=== PATIENT | male | born 1955 | race African-American/Black ===

== ENCOUNTER 2021-12-26 17:16 | Inpatient (IN) | payer MEDICAID, MEDICARE ==
[~2021-12-26] VITALS: Ht 182.9 cm; Wt 78.0 kg
[2021-12-26] MEDS ORDERED: ACETAMINOPHEN 325MG TABLET PO ONE (18:30)
[2021-12-26] MEDS ORDERED: KETOROLAC 60MG/2ML VIAL IM ONE (18:30)
[2021-12-26] MEDS: LIDOCAINE 5% PATCH TOP SCH (18:51)
[2021-12-26 20:01] LABS: BASOPHILS % 0.5 % (0.0-2.0); CHLORIDE 97 mEq/L (98-107); EOSINOPHILS % 0.3 % (0.0-5.0); HEMOGLOBIN. 16.7 g/dL (14.0-18.0); LYMPHOCYTES % 11.5 % (20.0-50.0); MEAN CORPUSCULAR HEMOGLOBIN 26.1 pg (28.0-32.0); MEAN CORPUSCULAR VOLUME 79.5 fL (80.0-94.0); MEAN PLATELET VOLUME 9.6 fl (7.4-10.4); MONOCYTES % 9.1 % (2.0-8.0); NEUTROPHILS % 78.6 % (40.0-76.0); PLATELET 159 x1000/uL (130-400); RED BLOOD CELL COUNT 6.41 mill/uL (4.7-6.1); RED CELL DISTRIBUTION WIDTH 16.2 % (11.6-14.6)
[2021-12-26 20:04] LABS: INR 1.2; PROTHROMBIN TIME 12.3 sec (9.6-11.0)
[2021-12-26] MEDS ORDERED: POTASSIUM CHLORIDE 20MEQ TABLET SR PO ONE (20:15)
[2021-12-26] MEDS ORDERED: ASPIRIN 325MG EC TABLET PO ONE (22:00)
[2021-12-27] MEDS ORDERED: ASPIRIN 325MG EC TABLET PO NR (00:15)
[2021-12-27] MEDS ORDERED: POTASSIUM CHLORIDE 20MEQ TABLET SR PO NR (00:15)
[2021-12-27] MEDS ORDERED: HYDROCODONE/ACETAMINOPHEN 5/325MG TABLET PO PRN (03:00)
[2021-12-27] MEDS ORDERED: DEXTROSE 50% WATER 50ML SYRINGE IV PRN (03:00)
[2021-12-27] MEDS ORDERED: NALOXONE HCL 0.4MG/ML VIAL IV PRN (03:15)
[2021-12-27 03:44] VITALS: BP 140/82
[2021-12-27 04:08] LABS: CLARITY URINE CLEAR (CLEAR); COLOR URINE DARK YELLOW (YELLOW); KETONES URINE 1+ (NEGATIVE); LEUKOCYTE ESTERASE URINE NEGATIVE (NEGATIVE); NITRITE URINE NEGATIVE (NEGATIVE); OCCULT BLOOD URINE 1+ (NEGATIVE); PROTEIN URINE 4+ (NEGATIVE); SPECIFIC GRAVITY URINE 1.032 (1.005-1.030)
[2021-12-27] MEDS: BLOOD SUGAR DIAGNOSTIC STRIP TEST SCH ×4 (06:23→21:35)
[2021-12-27 08:00] VITALS: BP 150/74
[2021-12-27] MEDS: INSULIN LISPRO 100 UNITS/ML SUBCUT SCH ×4 (08:37→22:09)
[2021-12-27] MEDS: ASPIRIN 81MG TABLET PO SCH (08:43)
[2021-12-27 08:55] LABS: CREATINE KINASE MB FRACTION 7.6 ng/mL (0.5-3.6)
[2021-12-27] MEDS: LIDOCAINE 5% PATCH TOP SCH (09:00)
[2021-12-27 09:45] LABS: BASOPHILS % 0.6 % (0.0-2.0); EOSINOPHILS % 1.8 % (0.0-5.0); HEMATOCRIT. 53.1 % (42.0-52.0); HEMOGLOBIN. 17.4 g/dL (14.0-18.0); LYMPHOCYTES % 21.2 % (20.0-50.0); MEAN CORPUSCULAR HEMOGLOBIN 25.9 pg (28.0-32.0); MEAN CORPUSCULAR VOLUME 79.3 fL (80.0-94.0); MEAN PLATELET VOLUME 10.5 fl (7.4-10.4); MONOCYTES % 12.4 % (2.0-8.0); PLATELET 166 x1000/uL (130-400); RED BLOOD CELL COUNT 6.69 mill/uL (4.7-6.1); RED CELL DISTRIBUTION WIDTH 15.9 % (11.6-14.6)
[2021-12-27 09:46] LABS: CHLORIDE 98 mEq/L (98-107)
[2021-12-27 09:55] LABS: HDL CHOLESTEROL 39 mg/dL (40-59); LDL CHOLESTEROL 128 mg/dL (5-100)
[2021-12-27 12:00] VITALS: BP 178/105
[2021-12-27] MEDS ORDERED: HYDRALAZINE 20MG/ML VIAL IV PRN (14:00)
[2021-12-27 16:00] VITALS: BP 152/89
[2021-12-27 17:22] LABS: CREATINE KINASE MB FRACTION 6.8 ng/mL (0.5-3.6)
[2021-12-27 20:00] VITALS: BP 234/136
[2021-12-27] MEDS: ATORVASTATIN CALCIUM 20MG TABLET PO SCH (21:35)
[2021-12-27] MEDS: CLONIDINE 0.2MG TABLET PO PRN (21:35)
[2021-12-27] MEDS: AMLODIPINE 5MG TABLET PO SCH (21:37)
[2021-12-27] MEDS: LORAZEPAM 2MG/ML CPJ IV PRN (23:46)
[2021-12-28] VITALS (8 sets, daily range): BP systolic 113–190; BP diastolic 59–100
[2021-12-28 01:41] LABS: CREATINE KINASE MB FRACTION 6.9 ng/mL (0.5-3.6)
[2021-12-28] MEDS: BLOOD SUGAR DIAGNOSTIC STRIP TEST SCH ×4 (06:21→21:18)
[2021-12-28] MEDS: ASPIRIN 81MG TABLET PO SCH (08:16)
[2021-12-28] MEDS: AMLODIPINE 5MG TABLET PO SCH ×2 (08:16→21:16)
[2021-12-28] MEDS: INSULIN LISPRO 100 UNITS/ML SUBCUT SCH ×4 (08:17→21:17)
[2021-12-28] MEDS ORDERED: HYDRALAZINE HCL 100MG TABLET PO NR (17:30)
[2021-12-28] MEDS: ATORVASTATIN CALCIUM 20MG TABLET PO SCH (21:15)
[2021-12-28] MEDS: HYDRALAZINE HCL 100MG TABLET PO SCH (21:16)
[2021-12-28] MEDS: LORAZEPAM 2MG/ML CPJ IV PRN (23:15)
[2021-12-29] VITALS: BP 112/61
[2021-12-29] MEDS: CLONIDINE 0.2MG TABLET PO PRN (03:57)
[2021-12-29 04:00] VITALS: BP 162/76
[2021-12-29] MEDS: HYDRALAZINE HCL 100MG TABLET PO SCH ×3 (05:30→21:01)
[2021-12-29] MEDS: BLOOD SUGAR DIAGNOSTIC STRIP TEST SCH ×4 (07:20→21:01)
[2021-12-29 08:00] VITALS: BP 112/85
[2021-12-29] MEDS: ASPIRIN 81MG TABLET PO SCH (08:33)
[2021-12-29] MEDS: AMLODIPINE 5MG TABLET PO SCH ×2 (08:33→21:01)
[2021-12-29] MEDS: INSULIN LISPRO 100 UNITS/ML SUBCUT SCH ×4 (08:34→21:02)
[2021-12-29 12:23] VITALS: BP 134/70
[2021-12-29 16:30] VITALS: BP 132/56
[2021-12-29] MEDS ORDERED: THIAMINE HCL 100 MG in SODIUM CHLORIDE 0.9% 49 ML IV NR (17:00)
[2021-12-29 17:44] LABS: BG BASE EXCESS 2.6 mmol/L (-2.0-2.0); BG CARBOXYHEMOGLOBIN 0.7 % (0.5-1.5); BG DEOXYHEMOGLOBIN 6.9 % (0.0-5.0); BG FRACTION INSPIRED OXYGEN 21; BG HCO3 ACT 24.9 mmol/L (22.0-26.0); BG METHEMOGLOBIN 0.4 % (0.0-1.5); BG PCO2 32.8 mmHg (35.0-45.0); BG PH 7.499 (7.350-7.450); BG PO2 62.1 mmHg (75.0-100.0); BG SAMPLE SITE RIGHT BRACHIAL; BG TOTAL HEMOGLOBIN 17.6 g/dL (12.0-18.0); BG VENT MODE ROOM AIR
[2021-12-29] MEDS: CEFEPIME 1,000 MG in DEXTROSE 5% WATER 50 ML IV SCH (18:05)
[2021-12-29 18:12] LABS: *AMPHETAMINES SCREEN URINE NEGATIVE (NEGATIVE); *BARBITURATES SCREEN URINE NEGATIVE (NEGATIVE); *BENZODIAZEPINES SCREEN URINE NEGATIVE (NEGATIVE); *COCAINE SCREEN URINE NEGATIVE (NEGATIVE); CANNABINOID URINE SCREEN NEGATIVE (NEGATIVE); METHADONE URINE SCREEN NEGATIVE (NEGATIVE); OPIATES URINE SCREEN NEGATIVE (NEGATIVE); PHENCYCLIDINE URINE SCREEN NEGATIVE (NEGATIVE)
[2021-12-29] MEDS: FUROSEMIDE 40MG/4ML VIAL IVP SCH (18:28)
[2021-12-29 20:00] VITALS: BP 117/52
[2021-12-29] MEDS ORDERED: CEFEPIME HCL 1000MG/VIAL INJ IV SCH (21:00)
[2021-12-29] MEDS: ATORVASTATIN CALCIUM 20MG TABLET PO SCH (21:00)
[2021-12-30] VITALS: BP 165/78
[2021-12-30] MEDS: CLONIDINE 0.2MG TABLET PO PRN ×2 (00:43→08:24)
[2021-12-30 04:00] VITALS: BP 120/58
[2021-12-30] MEDS: HYDRALAZINE HCL 100MG TABLET PO SCH ×3 (05:04→21:58)
[2021-12-30] MEDS: ASPIRIN 81MG TABLET PO SCH (08:11)
[2021-12-30] MEDS: FUROSEMIDE 40MG/4ML VIAL IVP SCH (08:11)
[2021-12-30] MEDS: INSULIN LISPRO 100 UNITS/ML SUBCUT SCH ×4 (08:15→22:00)
[2021-12-30] MEDS: AMLODIPINE 5MG TABLET PO SCH ×2 (08:24→21:59)
[2021-12-30 08:30] VITALS: BP 175/76
[2021-12-30 12:30] VITALS: BP 149/77
[2021-12-30] MEDS: BLOOD SUGAR DIAGNOSTIC STRIP TEST SCH ×3 (12:50→21:59)
[2021-12-30 16:00] VITALS: BP 129/60
[2021-12-30] MEDS: CEFEPIME 1,000 MG in DEXTROSE 5% WATER 50 ML IV SCH (16:32)
[2021-12-30 20:00] VITALS: BP 145/67
[2021-12-30] MEDS: ATORVASTATIN CALCIUM 20MG TABLET PO SCH (21:58)
[2021-12-30] MEDS: FINASTERIDE 5MG TABLET PO SCH (22:00)
[2021-12-30] MEDS: TAMSULOSIN HCL 0.4MG SR CAPSULE PO SCH (22:00)
[2021-12-31] VITALS: BP 120/57
[2021-12-31 04:00] VITALS: BP 135/59
[2021-12-31] MEDS: HYDRALAZINE HCL 100MG TABLET PO SCH ×3 (05:54→21:34)
[2021-12-31] MEDS: BLOOD SUGAR DIAGNOSTIC STRIP TEST SCH ×4 (07:02→21:34)
[2021-12-31 08:00] VITALS: BP 140/61
[2021-12-31 08:02] LABS: BASOPHILS % 0.4 % (0.0-2.0); EOSINOPHILS % 0.9 % (0.0-5.0); HEMATOCRIT. 48.9 % (42.0-52.0); HEMOGLOBIN. 15.8 g/dL (14.0-18.0); LYMPHOCYTES % 10.5 % (20.0-50.0); MEAN CORPUSCULAR HEMOGLOBIN 25.9 pg (28.0-32.0); MEAN CORPUSCULAR VOLUME 79.9 fL (80.0-94.0); MONOCYTES % 9.4 % (2.0-8.0); NEUTROPHILS % 78.8 % (40.0-76.0); RED BLOOD CELL COUNT 6.12 mill/uL (4.7-6.1); RED CELL DISTRIBUTION WIDTH 16.5 % (11.6-14.6)
[2021-12-31 08:10] LABS: CHLORIDE 97 mEq/L (98-107)
[2021-12-31] MEDS: INSULIN LISPRO 100 UNITS/ML SUBCUT SCH ×4 (08:24→21:36)
[2021-12-31] MEDS: FUROSEMIDE 40MG/4ML VIAL IVP SCH (08:28)
[2021-12-31] MEDS: FINASTERIDE 5MG TABLET PO SCH (08:29)
[2021-12-31] MEDS: ASPIRIN 81MG TABLET PO SCH (08:29)
[2021-12-31] MEDS: AMLODIPINE 5MG TABLET PO SCH ×2 (08:29→21:34)
[2021-12-31 12:00] VITALS: BP 154/57
[2021-12-31 12:01] LABS: PLATELET 192 x1000/uL (130-400)
[2021-12-31 16:00] VITALS: BP 144/64
[2021-12-31] MEDS: CEFEPIME 1,000 MG in DEXTROSE 5% WATER 50 ML IV SCH (17:00)
[2021-12-31 20:00] VITALS: BP 124/61
[2021-12-31] MEDS: ATORVASTATIN CALCIUM 20MG TABLET PO SCH (21:33)
[2021-12-31] MEDS: TAMSULOSIN HCL 0.4MG SR CAPSULE PO SCH (21:33)
[2022-01-01] VITALS: BP 166/79
[2022-01-01] MEDS: CLONIDINE 0.2MG TABLET PO PRN (01:37)
[2022-01-01 04:00] VITALS: BP 106/57
[2022-01-01] MEDS: HYDRALAZINE HCL 100MG TABLET PO SCH ×3 (06:00→21:32)
[2022-01-01] MEDS: BLOOD SUGAR DIAGNOSTIC STRIP TEST SCH ×4 (06:24→21:33)
[2022-01-01 08:00] VITALS: BP 145/74
[2022-01-01] MEDS: ASPIRIN 81MG TABLET PO SCH (09:26)
[2022-01-01] MEDS: FUROSEMIDE 40MG/4ML VIAL IVP SCH (09:26)
[2022-01-01] MEDS: FINASTERIDE 5MG TABLET PO SCH (09:27)
[2022-01-01] MEDS: AMLODIPINE 5MG TABLET PO SCH ×2 (09:27→21:32)
[2022-01-01] MEDS: INSULIN LISPRO 100 UNITS/ML SUBCUT SCH ×4 (09:28→21:35)
[2022-01-01 12:00] VITALS: BP 144/59
[2022-01-01 16:00] VITALS: BP_DIAS 79
[2022-01-01] MEDS: CEFEPIME 1,000 MG in DEXTROSE 5% WATER 50 ML IV SCH (19:22)
[2022-01-01 20:00] VITALS: BP 147/55
[2022-01-01] MEDS: TAMSULOSIN HCL 0.4MG SR CAPSULE PO SCH (21:32)
[2022-01-01] MEDS: ATORVASTATIN CALCIUM 20MG TABLET PO SCH (21:32)
[2022-01-02] VITALS: BP 138/67
[2022-01-02 04:00] VITALS: BP 159/69
[2022-01-02] MEDS: HYDRALAZINE HCL 100MG TABLET PO SCH ×3 (05:35→21:51)
[2022-01-02] MEDS: BLOOD SUGAR DIAGNOSTIC STRIP TEST SCH ×4 (07:23→21:51)
[2022-01-02 08:00] VITALS: BP 141/67
[2022-01-02] MEDS: FUROSEMIDE 40MG/4ML VIAL IVP SCH (09:49)
[2022-01-02] MEDS: ASPIRIN 81MG TABLET PO SCH (09:49)
[2022-01-02] MEDS: FINASTERIDE 5MG TABLET PO SCH (09:50)
[2022-01-02] MEDS: AMLODIPINE 5MG TABLET PO SCH ×2 (09:50→21:51)
[2022-01-02] MEDS: INSULIN LISPRO 100 UNITS/ML SUBCUT SCH ×4 (09:51→21:52)
[2022-01-02 12:00] VITALS: BP 144/57
[2022-01-02] MEDS ORDERED: INSULIN GLARGINE 100 UNITS/ML SUBCUT NR (14:00)
[2022-01-02] MEDS ORDERED: LORAZEPAM 0.5MG TABLET PO NR (15:15)
[2022-01-02 16:00] VITALS: BP 150/60
[2022-01-02] MEDS: CEFEPIME 1,000 MG in DEXTROSE 5% WATER 50 ML IV SCH (18:21)
[2022-01-02 20:00] VITALS: BP 114/64
[2022-01-02] MEDS: TAMSULOSIN HCL 0.4MG SR CAPSULE PO SCH (21:50)
[2022-01-02] MEDS: ZOLPIDEM TARTRATE 5MG TABLET PO PRN (21:51)
[2022-01-02] MEDS: ATORVASTATIN CALCIUM 20MG TABLET PO SCH (21:51)
[2022-01-02] MEDS: INSULIN GLARGINE 100 UNITS/ML SUBCUT SCH (21:53)
[2022-01-03] VITALS: BP 127/97
[2022-01-03 04:00] VITALS: BP 143/63
[2022-01-03] MEDS: BLOOD SUGAR DIAGNOSTIC STRIP TEST SCH ×4 (06:23→20:52)
[2022-01-03] MEDS: HYDRALAZINE HCL 100MG TABLET PO SCH ×3 (06:37→21:36)
[2022-01-03 08:00] VITALS: BP 150/69
[2022-01-03] MEDS: ASPIRIN 81MG TABLET PO SCH (08:34)
[2022-01-03] MEDS: FUROSEMIDE 40MG/4ML VIAL IVP SCH (08:34)
[2022-01-03] MEDS: FINASTERIDE 5MG TABLET PO SCH (08:34)
[2022-01-03] MEDS: AMLODIPINE 5MG TABLET PO SCH ×2 (08:34→21:37)
[2022-01-03] MEDS: INSULIN GLARGINE 100 UNITS/ML SUBCUT SCH ×2 (08:37→21:38)
[2022-01-03] MEDS: INSULIN LISPRO 100 UNITS/ML SUBCUT SCH ×4 (08:38→21:00)
[2022-01-03 12:00] VITALS: BP 98/68
[2022-01-03 16:00] VITALS: BP 143/81
[2022-01-03] MEDS: CEFEPIME 1,000 MG in DEXTROSE 5% WATER 50 ML IV SCH (17:54)
[2022-01-03 20:00] VITALS: BP 130/69
[2022-01-03] MEDS: ZOLPIDEM TARTRATE 5MG TABLET PO PRN (21:36)
[2022-01-03] MEDS: TAMSULOSIN HCL 0.4MG SR CAPSULE PO SCH (21:36)
[2022-01-03] MEDS: ATORVASTATIN CALCIUM 20MG TABLET PO SCH (21:39)
[2022-01-04] VITALS: BP 127/64
[2022-01-04 04:00] VITALS: BP 129/71
[2022-01-04] MEDS: INSULIN LISPRO 100 UNITS/ML SUBCUT SCH ×3 (06:31→18:23)
[2022-01-04] MEDS: BLOOD SUGAR DIAGNOSTIC STRIP TEST SCH ×3 (06:31→18:18)
[2022-01-04] MEDS: HYDRALAZINE HCL 100MG TABLET PO SCH ×2 (06:31→13:27)
[2022-01-04 08:00] VITALS: BP 152/74
[2022-01-04] MEDS: AMLODIPINE 5MG TABLET PO SCH (09:58)
[2022-01-04] MEDS: FINASTERIDE 5MG TABLET PO SCH (09:58)
[2022-01-04] MEDS: ASPIRIN 81MG TABLET PO SCH (09:58)
[2022-01-04] MEDS: FUROSEMIDE 40MG/4ML VIAL IVP SCH (09:58)
[2022-01-04] MEDS: INSULIN GLARGINE 100 UNITS/ML SUBCUT SCH (10:00)
[2022-01-04 12:00] VITALS: BP 130/69
[2022-01-04 15:22] VITALS: BP 130/69
[2022-01-04 16:00] VITALS: BP 145/61
== END 2022-01-04 18:59 | DRG 205 ==
LOC: ER 17:16 → 6WST 22:59 → ENRESERV 23:31 → 6WST 12-27 17:56
PROVIDERS: ADMIT Internal Medicine; ATTEND Internal Medicine
PROC: 4A00X4Z Measurement of Central Nervous Electrical Activity, External Approach (ICD-10-PCS; principal; 2021-12-31)
DX: S22.32XA Fracture of one rib, left side, initial encounter for closed fracture (principal); E43 Unspecified severe protein-calorie malnutrition; G93.41 Metabolic encephalopathy; J96.91 Respiratory failure, unspecified with hypoxia; E87.1 Hypo-osmolality and hyponatremia; N17.9 Acute kidney failure, unspecified; I51.7 Cardiomegaly; I16.0 Hypertensive urgency; E11.65 Type 2 diabetes mellitus with hyperglycemia; E87.8 Other disorders of electrolyte and fluid balance, not elsewhere classified; E87.6 Hypokalemia; Z79.4 Long term (current) use of insulin; Z78.1 Physical restraint status; Z68.23 Body mass index [BMI] 23.0-23.9, adult; Z86.73 Personal history of transient ischemic attack (TIA), and cerebral infarction without residual deficits; V89.2XXA Person injured in unspecified motor-vehicle accident, traffic, initial encounter; Y93.89 Activity, other specified; Y92.89 Other specified places as the place of occurrence of the external cause; Y99.8 Other external cause status
CPT/HCPCS: 36415; 36600; 71045; 71111; 80048; 80053; 80061; 80305; 81003; 82375; 82550; 82553; 82805; 82962; 83036; 83880; 84153; 84484; 85025; 87426; 93005; 93306; 95816; 97116; 97162; 99291; A6261; C1893; J0360; J0692; J1815; J1885; J1940; J2060; J3411; J7060; A4315; G0103

== ENCOUNTER 2022-01-04 21:01 | Emergency (ER) | payer MEDICARE ==
[~2022-01-04] VITALS: Ht 182.9 cm; Wt 78.0 kg
[2022-01-05 01:51] VITALS: BP 155/85
== END 2022-01-05 02:00 | disposition home or self-care (01) ==
LOC: ER 21:01
DX: I10 Essential (primary) hypertension (principal); E11.9 Type 2 diabetes mellitus without complications
CPT/HCPCS: 99283